=== PATIENT | male | born 1995 | race Two or more races ===

== ENCOUNTER 2020-03-29 16:14 | Emergency (ER) | payer OTHER ==
[~2020-03-29] VITALS: Ht 175.3 cm; Wt 127.0 kg
--- NOTE | 2020-03-29 16:49 | NUR ---
[facility]. R ANKLE, L LATERAL RIB, R ELBOW AND R KNEE PAIN X TODAY AFTER GETTING DETAINED. PATIENT A/OX4, AMBULATORY WITH STEADY GAIT. NO DISTRESS NOTED.
[2020-03-29] MEDS ORDERED: IBUPROFEN 400 MG TABLET PO ONE (17:00)
[2020-03-29] MEDS ORDERED: IBUPROFEN 400 MG TABLET ONE (17:10)
--- NOTE | 2020-03-29 17:34 | NUR ---
Patient discharged to home in stable condition. Written and verbal after care instructions given to PD, PD verbalizes understanding of instruction.
[2020-03-29 17:40] VITALS: BP 151/95
== END 2020-03-29 17:41 ==
LOC: ER 16:14
DX: S93.492A Sprain of other ligament of left ankle, initial encounter (principal); S80.211A Abrasion, right knee, initial encounter; I10 Essential (primary) hypertension; E11.9 Type 2 diabetes mellitus without complications; W18.39XA Other fall on same level, initial encounter; Y93.89 Activity, other specified; Y92.89 Other specified places as the place of occurrence of the external cause; Y99.8 Other external cause status
CPT/HCPCS: 73564-TC; 73610-TC